=== PATIENT | male | born 1960 | race Caucasian/White ===

== ENCOUNTER 2024-01-03 08:26 | Emergency (ER) | payer BC, SELFPAY ==
[2024-01-03 08:28] VITALS: BP 158/110
--- NOTE | 2024-01-03 09:27 | ED.GENMED ---
History of Present Illness
General
Chief Complaint: Skin Problem
Source: patient
Exam Limitations: none
Time Seen by Provider: 01/03/24 08:58
Nursing documentation reviewed up to this point in time: agreed with
History of Present Illness
History of Present Illness:
63 yo male presents to the emergency department complaining of facial swelling, swelling of chin and rash on right upper arm. He saw urgent care and was diagnosed with maxillary sinusitis and prescribed Flonase and Augmentin.
Past History
Past History
ED Past Medical History: Other (minimally elevated PSA, maybe mild BPH)
ED Past Surgical History: Other (hernia surgery)
Social History
Drug: None
Personal:
Living: with family
Employment: Employed
Review of Systems
Review of Systems
Allergies reviewed?: Yes
All Other Systems: Not applicable
Constitutional: Reports no symptoms
EENT: Reports other (Facial rash)
Respiratory: Reports no symptoms
Cardiac: Reports no symptoms
ABD/GI: Reports no symptoms
: Reports no symptoms
Musculoskeletal: Reports no symptoms
Skin: Reports rash
Neurological: Reports no symptoms
Endocrine: Reports no symptoms
Hematologic/Lymphatic: Reports no symptoms
Psychiatric: Reports no symptoms
Phy Exam
Physical Exam
Physical Exam:
Physical Exam
General: no apparent distress, not acutely ill
Neck: supple. no meningeal signs. normal posterior pharynx
Heart: equal radial pulses.
HEENT: Pupils equal round reactive to light, EOMI
Lungs: no acute respiratory distress. clear bilaterally
Abdomen: normal bowel sounds. not tender. no CVAT
Neuro: alert and oriented. no focal neurological deficits cranial nerves II through XII intact
Skin: Mild macular rash on right maxillary region and right pink, as well as right chest and shoulder
Psychiatric: well kept. interactive and cooperative
Extremities: no edema. no calf tenderness. negative homans. good distal pulses
Course
Orders/Labs/Results
Orders:
Orders
01/03/24 09:26
IV Insert/Care/Rem.- Treatment PRN
01/03/24 09:35
CRP [C-Reactive Protein] Urgent
Complete Blood Count/With Diff Urgent
Comprehensive Metabolic Panel Urgent
ESR [Erythrocyte Sed Rate] Urgent
01/03/24 10:55
Dexamethasone Sod Phosphate [Decadron] 10 mg IV NOW STA
01/03/24 10:56
CeFAZolin 1 gram IV Push NOW CeFAZolin 1 GRAM [Ancef] 1 gram in 5 ml IV NOW
Abnormal Lab Results
01/03/24
09:35
Absolute Monos (auto) 0.7 H 10^3/uL
(0.1-0.6)
Lymphocytes % 18.2 L %
(20.5-51.1)
Chloride 108 H mmol/L
(98-107)
Glucose 104 H mg/dl
(70-99)
ALT 53 H U/L
(0-50)
01/03/24 09:35
01/03/24 09:35
Vital Signs
Initial and Last Documented VS:
Initial Vital Signs
Temp Pulse Resp BP Pulse Ox
98.1 F 77 16 158/110 97
01/03/24 08:28 01/03/24 08:28 01/03/24 08:28 01/03/24 08:28 01/03/24 08:28
Last Documented Vital Signs
Temp Pulse Resp BP Pulse Ox
98.1 F 57 16 141/98 94
01/03/24 08:28 01/03/24 10:15 01/03/24 10:15 01/03/24 10:15 01/03/24 10:15
MDM/Problems Addressed
Differential Diagnosis Includes:
Cellulitis, dermatitis
MDM/Problems Addressed:
63-year-old male with cellulitis versus dermatitis. Treat with prednisone burst, triamcinolone and Keflex. IV Decadron and cefazolin given in ED. Follow-up with dermatology and primary care.
*Pulse Oximetry
Patient hypoxic: no
*EKG
Interpreted by ED Provider?: NA
*Prints And Drawings Curator Interpretation
Rate: Prints And Drawings Curator- N/A
*Critical Care Note
Total Time (30-74mins, 75-104mins- exclusive of procedures): Not Applicable
Patient Management
Social determinants of health affecting care: Living situation
Escalation/DeEscalation of care consider admission/obs:
Admit not indicated
ED Attending Note
-
Portions of this chart may have been created with voice recognition software.� Occasional wrong word or��sound alike� substitutions may have occurred due to the inherent limitations of voice recognition software.
Discharge Plan
Departure
Patient Disposition: Home (Routine Discharge)
Date of Disposition: 01/03/24
Time of Disposition: 10:58
Patient with high blood pressure during this ER visit?: Yes
Condition: Good
Discharge Problem:
Cellulitis of face, Dermatitis
Instructions: Cellulitis (Skin Infection), Adult (DC), BLOOD PRESSURE
Prescriptions:
New
triamcinolone acetonide 0.1 % ointment
1 applic topical DAILY Qty: 15 0RF
Rx Instructions:
apply to affected areas on face and shoulder for 1 week
cephalexin 500 mg capsule
500 mg PO BID 7 Days Qty: 14 0RF
prednisone 50 mg tablet
50 mg PO DAILY Qty: 5 0RF
No Action
cranberry 1,000 MG capsule
1 tab PO DAILY
omega 0-[id number]-[id number]-fish oil [Fish Oil] 1 EACH capsule
1 cap PO DAILY
Referrals:
Eliazar Castro MD [Family Provider] - Call in 1-3 days for appt
Alfonso David MD [Consulting Staff] - Call in 1-3 days for appt
Interventions
Interventions:
*ED COVID-19 Vaccine History Last Done: 01/03/24 08:28
ED-Skin Assessment Last Done: 01/03/24 09:03
Discharge Date and Time
Print Language: BURKINAN
[2024-01-03 09:45] LABS: % Basophils 0.6 % (0-2); % Eosinophils 4.2 % (0-6); % Immature Granulocytes 0.4 % (0-0.5); % Lymphocytes 18.2 % (20.5-51.1); % Monocytes 8.3 % (1.7-9.3); % Neutrophils 68.3 % (42.2-75.2); Absolute Basophils 0.1 10^3/uL (0-0.2); Absolute Eosinophils 0.4 10^3/uL (0-0.7); Absolute Lymphocytes 1.5 10^3/uL (1.2-3.4); Absolute Monocytes 0.7 10^3/uL (0.1-0.6); Absolute Neutrophils 5.7 10^3/uL (1.4-6.5); Hematocrit 47.6 % (39.0-52.0); Hemoglobin 16.7 g/dL (13.0-18.0); Mean Corp Hgb Conc. 35.1 g/dL (33.0-37.0); Mean Corpuscular Hgb 30.3 pg (27.0-31.0); Mean Corpuscular Volume 86.4 fL (80.0-94.0); Nucleated Red Blood Cells % 0 % (-); Platelet Count 173 10^3/uL (130-400); Red Blood Cell Count 5.51 10^6/uL (4.70-6.10); Red Cell Dist. Width 12.1 % (11.5-14.5); White Blood Cell Count 8.4 10^3/uL (4.8-10.8)
[2024-01-03 10:03] LABS: ALT (SGPT) 53 U/L (0-50); AST (SGOT) 36 U/L (17-59); Albumin 4.6 g/dl (3.5-5.0); Alkaline Phosphatase 54 U/L (38-126); Blood Urea Nitrogen 16 mg/dl (9-20); Calcium 9.9 mg/dl (8.4-10.2); Carbon Dioxide 23 mmol/L (22-30); Chloride 108 mmol/L (98-107); Glucose 104 mg/dl (70-99); Potassium 4.2 mmol/L (3.5-5.1); Sodium 139 mmol/L (135-145); Total Bilirubin 1.3 mg/dl (0.2-1.3); Total Protein 6.8 g/dl (6.3-8.2); eGFR > 60.00
[2024-01-03 10:15] VITALS: BP 141/98
[2024-01-03 11:00] LABS: Erythrocyte Sed Rate 7 mm/hour (0-20)
[2024-01-03] MEDS: DECADRON 10 MG IV (11:42)
[2024-01-03] MEDS: ANCEF 5 IV (11:42)
[2024-01-03 12:22] LABS: C-Reactive Protein < 5.00 mg/L (0.0-10.00)
== END 2024-01-03 11:55 | disposition home or self-care (01) ==
LOC: EMR 08:26
PROVIDERS: EMERGENCY PHYSICIAN Emergency Medicine; FAMILY PHYSICIAN Internal Medicine
DX: L03.211 Cellulitis of face (principal); L30.9 Dermatitis, unspecified
CPT/HCPCS: 99283; 96374; 96375; 80053; 85025; 85652; 86140